=== PATIENT | female | born 2005 | race Caucasian/White ===

== ENCOUNTER 2023-09-29 09:00 | Emergency (ER) | payer MEDICAID, OTHER ==
[2023-09-29] MEDS: Acetaminophen 500 MG Tab PO ONE (09:35)
[2023-09-29] MEDS: Ondansetron 4 MG/2 ML SDV IVPUSH ONE (09:36)
[2023-09-29] MEDS: Sodium Chloride 0.9% 1,000 ML IV ONE (09:36)
[2023-09-29 09:48] LABS: BASOPHILS ABSOLUTE AUTO 0.06 K/uL (0.00-0.30); EOSINOPHILS ABSOLUTE AUTO 0.09 K/uL (0.00-0.70); EOSINOPHILS PERCENT AUTO 1.5 % (0.0-5.0); HEMATOCRIT 36.7 % (37.0-47.0); HEMOGLOBIN 12.4 g/dL (12.0-16.0); IMMATURE GRAN ABSOLUTE AUTO 0.02 K/uL (0.00-0.05); IMMATURE GRAN PERCENT AUTO 0.3 % (0.0-0.4); LYMPHOCYTES ABSOLUTE AUTO 1.47 K/uL (2.00-8.80); LYMPHOCYTES PERCENT AUTO 24.2 % (50.0-65.0); MEAN CORPUSCULAR HEMOGLOBIN 27.9 pg (28.0-32.0); MEAN CORPUSCULAR HGB CONC 33.8 g/dL (32.0-36.0); MEAN CORPUSCULAR VOLUME 82.7 fL (83.0-99.0); MONOCYTES ABSOLUTE AUTO 0.49 K/uL (0.10-1.40); MONOCYTES PERCENT AUTO 8.1 % (2.0-10.0); NEUTROPHILS ABSOLUTE AUTO 3.95 K/uL (1.50-8.50); NEUTROPHILS PERCENT AUTO 64.9 % (35.0-45.0); PLATELET COUNT,PLT 240 K/uL (150-400); RED BLOOD CELL COUNT 4.44 M/uL (4.10-5.30); WHITE BLOOD CELL COUNT,WBC 6.08 K/uL (4.5-13.5)
[2023-09-29 10:22] LABS: A/G RATIO 1.1 (0.9-1.6); ALBUMIN 3.5 g/dL (3.4-5.0); BILIRUBIN TOTAL 0.2 mg/dL (0.2-1.0); CALCIUM 8.7 mg/dL (8.5-10.1); CARBON DIOXIDE,CO2 23.8 mmol/L (21.0-32.0); CREATININE 0.6 mg/dL (0.6-1.0); EST CRCL DRUG DOSING (CG) 141.18 mL/min; MAGNESIUM 1.8 mg/dL (1.8-2.4); POTASSIUM,K 3.4 mmol/L (3.5-5.1); PROTEIN TOTAL,TP 6.7 g/dL (6.4-8.2)
[2023-09-29 10:35] LABS: APPEARANCE,URINE CLEAR; BILIRUBIN,URINE NEGATIVE (NEGATIVE); COLOR,URINE YELLOW; GLUCOSE,URINE NEGATIVE (NEGATIVE); KETONES,URINE NEGATIVE (NEGATIVE); LEUKOCYTE ESTERASE,URINE SMALL (NEGATIVE); NITRITE,URINE POSITIVE (NEGATIVE); OCCULT BLOOD,URINE NEGATIVE (NEGATIVE); PROTEIN,URINE NEGATIVE (NEGATIVE); UROBILINOGEN,URINE 0.2 EU/dL (<2.0)
[2023-09-29 10:48] LABS: BACTERIA,URINE 3+ (NEGATIVE); EPITHELIAL CELLS,URINE FEW (NONE-FEW); RBC,URINE 0-2 (0-2/HPF)
== END 2023-09-29 11:45 | disposition home or self-care (01) ==
LOC: MW.ED 09:00
DX: O99.891 Other specified diseases and conditions complicating pregnancy (principal); R10.84 Generalized abdominal pain; Z3A.01 Less than 8 weeks gestation of pregnancy; Z75.8 Other problems related to medical facilities and other health care
CPT/HCPCS: 36415; 76801; 80053; 81001; 83690; 83735; 84702; 85025; 87086; 96361; 96374; 99284; A9270; J2405; J7030

== ENCOUNTER 2024-05-21 00:09 | Inpatient (IN) | payer MEDICAID ==
[2024-05-21] MEDS ORDERED: Water For Irrigation,Sterile 1,000 ML Container IRR PRN (01:59)
[2024-05-21] MEDS ORDERED: Lidocaine 1% 50 ML MDV INJECT PRN (01:59)
[2024-05-21] MEDS ORDERED: Sodium Chloride 0.9% 20 ML SDV IV PRN (01:59)
[2024-05-21] MEDS ORDERED: Tranexamic Acid in NACL,ISO-OS 1,000 MG in Premix Bag 1 BAG IV PRN (01:59)
[2024-05-21] MEDS ORDERED: Terbutaline 1 MG/ML SDV SUBCUT PRN (01:59)
[2024-05-21] MEDS ORDERED: Sodium Chloride 0.9% 2.5 ML Syringe FLUSH PRN (01:59)
[2024-05-21] MEDS ORDERED: Misoprostol 200 MCG Tab PO PRN (01:59)
[2024-05-21] MEDS ORDERED: Sodium Chloride 0.9% 10 ML Syringe FLUSH PRN (01:59)
[2024-05-21] MEDS ORDERED: Carboprost Tromethamine 250 MCG/1 mL Vial IM PRN (01:59)
[2024-05-21] MEDS ORDERED: Oxytocin/0.9 % Sodium Chloride 30 UNIT/500 ML BAG IV SCH (02:00)
[2024-05-21 04:00] LABS: HEMATOCRIT 28.7 % (37.0-47.0); HEMOGLOBIN 9.2 g/dL (12.0-16.0); MEAN CORPUSCULAR HEMOGLOBIN 25.2 pg (28.0-32.0); MEAN CORPUSCULAR HGB CONC 32.1 g/dL (32.0-36.0); MEAN CORPUSCULAR VOLUME 78.6 fL (83.0-99.0); MEAN PLATELET VOLUME 13.4 fL (9.4-12.3); PLATELET COUNT,PLT 203 K/uL (150-400); RED BLOOD CELL COUNT 3.65 M/uL (4.10-5.30); WHITE BLOOD CELL COUNT,WBC 8.31 K/uL (3.9-11.3)
[2024-05-21] MEDS: Misoprostol 25 MCG (1/4 of 100 MCG) Tab VAG PRN (07:52)
[2024-05-21] MEDS: Misoprostol 25 MCG (1/4 of 100 MCG) Tab PO PRN (07:52)
[2024-05-21] MEDS: Lactated Ringers 1,000 ML IV SCH (16:30)
[2024-05-21] MEDS: Oxytocin/0.9 % Sodium Chloride 30 UNIT/500 ML BAG IV SCH (16:45)
[2024-05-21] MEDS: Butorphanol 2 MG/ML SDV IVPUSH PRN (22:10)
[2024-05-21] MEDS ORDERED: dexmedeTOMIDine HCl 200 MCG/2 ML SDV EPIDUR SCH (23:45)
[2024-05-21] MEDS: Ropivacaine HCl/PF 400 MG in Premix Bag 1 BAG EPIDUR SCH (23:46)
[2024-05-21] MEDS ORDERED: dexmedeTOMIDine HCl 200 MCG/2 ML SDV ONE (23:47)
[2024-05-21] MEDS ORDERED: Ropivacaine HCl/PF 200 ML ONE (23:47)
[2024-05-21] MEDS ORDERED: Phenylephrine HCl In 0.9% NaCl 1 MG/10 ML Syringe ONE (23:47)
[2024-05-21] MEDS ORDERED: Phenylephrine HCl In 0.9% NaCl 1 MG/10 ML Syringe IVPUSH PRN (23:54)
[2024-05-21] MEDS ORDERED: ePHEDrine 50 MG/ML SDV IVPUSH PRN (23:54)
[2024-05-22] MEDS: Ondansetron 4 MG/2 ML SDV IVPUSH PRN (00:31)
[2024-05-22] MEDS ORDERED: Bupivacaine 0.5% 30 ML SDV ONE (11:26)
[2024-05-22] MEDS ORDERED: fentaNYL 100 MCG/2 ML SDV ONE (11:26)
[2024-05-22] MEDS ORDERED: Lidocaine 1% 50 ML MDV ONE (14:38)
[2024-05-22] MEDS ORDERED: Misoprostol 200 MCG Tab RECTAL PRN (14:40)
[2024-05-22] MEDS ORDERED: Benzocaine/Menthol 20%-0.5% Spray 78 GM Cannister TOP PRN (16:14)
[2024-05-22] MEDS ORDERED: Lanolin 100% Cream 7 GM Tube TOP PRN (16:14)
[2024-05-22] MEDS ORDERED: Witch Hazel Medicated Pads 40/Jar TOP PRN (16:14)
[2024-05-22] MEDS ORDERED: Docusate Sodium 100 MG Cap PO PRN (16:14)
[2024-05-22 16:35] LABS: PH,UMBILICAL ARTERIAL 7.225 (7.18-7.38); PH,UMBILICAL VENOUS 7.27 (7.25-7.45)
[2024-05-22] MEDS: Methylergonovine 0.2 MG/1 ML Amp IM PRN (16:35)
[2024-05-22] MEDS: Ibuprofen 800 MG Tab PO PRN (17:38)
[2024-05-23] MEDS: Acetaminophen 500 MG Tab PO PRN (05:35)
[2024-05-23 06:19] LABS: HEMATOCRIT 23.2 % (37.0-47.0); HEMOGLOBIN 7.4 g/dL (12.0-16.0)
== END 2024-05-23 21:00 | disposition home or self-care (01) | DRG 806 ==
LOC: MW.OB 00:09 → OBSVTOIN 05-22 16:15 → MW.OB 05-22 19:47
PROVIDERS: ADMIT Obstetrics & Gynecology Obstetrics; ATTEND Obstetrics & Gynecology Obstetrics
PROC: 10E0XZZ Delivery of Products of Conception, External Approach (ICD-10-PCS; principal; 2024-05-22)
PROC: 0KQM0ZZ Repair Perineum Muscle, Open Approach (ICD-10-PCS; 2024-05-22)
PROC: 10907ZC Drainage of Amniotic Fluid, Therapeutic from Products of Conception, Via Natural or Artificial Opening (ICD-10-PCS; 2024-05-22)
PROC: 3E033VJ Introduction of Other Hormone into Peripheral Vein, Percutaneous Approach (ICD-10-PCS; 2024-05-22)
DX: O70.1 Second degree perineal laceration during delivery (principal); O72.1 Other immediate postpartum hemorrhage; O90.81 Anemia of the puerperium; Z37.0 Single live birth; Z3A.39 39 weeks gestation of pregnancy; Z91.041 Radiographic dye allergy status; Z98.890 Other specified postprocedural states; Z90.89 Acquired absence of other organs; Z87.81 Personal history of (healed) traumatic fracture
CPT/HCPCS: 01967; 36415; 51702; 59409; 82803; 85014; 85018; 85027; 86592; 86850; 86900; 86901; A9270-GY; J0595; J0665; J2210; J2371; J2405; J2590; J2795; J3010; J7120

== ENCOUNTER 2024-10-28 13:10 | Emergency (ER) | payer MEDICAID ==
[2024-10-28] MEDS: Dexamethasone 4 MG Tab PO ONE (14:25)
[2024-10-28] MEDS: Amoxicillin/Clavulanate K 875-125 MG Tab PO ONE (14:25)
== END 2024-10-28 14:27 | disposition home or self-care (01) ==
LOC: MW.ED 13:10
DX: J02.0 Streptococcal pharyngitis (principal); Z91.030 Bee allergy status; Z91.018 Allergy to other foods; Z91.041 Radiographic dye allergy status; Z79.899 Other long term (current) drug therapy
CPT/HCPCS: 87651; 99284; A9270; J8540; 99283